=== PATIENT | female | born 1965 | race Caucasian/White ===

== ENCOUNTER 2017-05-02 13:25 | Emergency (ER) | payer OTHER ==
[~2017-05-02] VITALS: Ht 162.6 cm; Wt 95.5 kg
[2017-05-02 13:37] VITALS: TEMP 37.3; Ht 162.6 cm; Wt 95.5 kg
[2017-05-02] MEDS ORDERED: IRBE1TAB48 PO (14:10)
[2017-05-02] MEDS ORDERED: HYDR25TA4 PO (14:10)
[2017-05-02] MEDS ORDERED: DIPHTHERIA/TETANUS/PERTUSSIS 0.5 ML SYR/VIAL IM. ONE (14:30)
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
[2017-05-02] MEDS ORDERED: OPTIRAY 320 IV PRN (15:00)
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
[2017-05-02 15:23] LABS: ISTAT CREATININE 1.2 mg/dl (0.6-1.3); ISTAT HEMOGLOBIN 12.6 g/dl (12.0-16.0); ISTAT IONIZED CALCIUM 1.14 mmol/l (1.12-1.32)
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
[2017-05-02 17:25] VITALS: BP 168/94; PULSE 93; O2SAT 95
== END 2017-05-02 17:55 | disposition short-term general hospital (02) ==
LOC: C.EDC 13:28
DX: S42.102A Fracture of unspecified part of scapula, left shoulder, initial encounter for closed fracture (principal); S22.42XA Multiple fractures of ribs, left side, initial encounter for closed fracture; S27.321A Contusion of lung, unilateral, initial encounter; S27.2XXA Traumatic hemopneumothorax, initial encounter; V28.5XXA Motorcycle passenger injured in noncollision transport accident in traffic accident, initial encounter; Y92.410 Unspecified street and highway as the place of occurrence of the external cause